=== PATIENT | female | born 1985 | race Caucasian/White ===

== ENCOUNTER 2020-04-07 14:16 | Outpatient (REF) | payer MEDICAID, SELFPAY | END 2020-04-07 14:17 | disposition home or self-care (01) | LOC: HO.LAB 14:16 | PROVIDERS: Visit Provider Internal Medicine | DX: Z20.828 Contact with and (suspected) exposure to other viral communicable diseases (principal) | CPT/HCPCS: 87635 ==

== ENCOUNTER → 2020-04-14 14:42 | Outpatient (BNVA) | payer OTHER, SELFPAY | PROVIDERS: Visit Provider Advanced Practice Midwife | DX: L03.317 Cellulitis of buttock (principal); L02.31 Cutaneous abscess of buttock; R39.15 Urgency of urination; R10.2 Pelvic and perineal pain; Z20.2 Contact with and (suspected) exposure to infections with a predominantly sexual mode of transmission; Z86.19 Personal history of other infectious and parasitic diseases | CPT/HCPCS: 99214 ==

== ENCOUNTER 2020-04-14 17:37 | Outpatient (REF) | payer OTHER, SELFPAY ==
[2020-04-15 02:51] LABS: CT PCR NOT DETECTED (Not Detect.); NG PCR NOT DETECTED (Not Detect.)
[2020-04-15 09:09] LABS: BV Int Neg Control Negative (Negative); BV Int Pos Control Positive (Positive)
== END 2020-04-14 17:38 | disposition home or self-care (01) ==
LOC: HO.LNP 17:37
PROVIDERS: Visit Provider Advanced Practice Midwife
DX: Z11.3 Encounter for screening for infections with a predominantly sexual mode of transmission (principal); Z20.2 Contact with and (suspected) exposure to infections with a predominantly sexual mode of transmission; R10.2 Pelvic and perineal pain
CPT/HCPCS: 87086; 87480; 87491; 87510; 87591; 87660

== ENCOUNTER → 2020-04-30 11:58 | Outpatient (BNVA) | payer OTHER, SELFPAY | PROVIDERS: PCP Physician Assistant Medical; Visit Provider Advanced Practice Midwife | DX: N76.0 Acute vaginitis (principal); B96.89 Other specified bacterial agents as the cause of diseases classified elsewhere; Z20.2 Contact with and (suspected) exposure to infections with a predominantly sexual mode of transmission | CPT/HCPCS: 99212 ==

== ENCOUNTER → 2020-05-19 13:34 | Outpatient (BNVA) | payer OTHER, SELFPAY | PROVIDERS: Visit Provider Physician Assistant | DX: Z76.89 Persons encountering health services in other specified circumstances (principal) ==

== ENCOUNTER → 2020-05-20 07:56 | Outpatient (BNVA) | payer OTHER, SELFPAY | PROVIDERS: Visit Provider Surgery | DX: Z76.89 Persons encountering health services in other specified circumstances (principal) ==

== ENCOUNTER → 2020-06-11 08:10 | Outpatient (BNVA) | payer OTHER, SELFPAY | PROVIDERS: PCP Physician Assistant Medical; Referring Provider Physician Assistant Medical; Visit Provider Surgery | DX: Z76.89 Persons encountering health services in other specified circumstances (principal) ==

== ENCOUNTER → 2020-06-18 08:43 | Outpatient (BNVA) | payer OTHER, SELFPAY | PROVIDERS: PCP Physician Assistant Medical; Referring Provider Physician Assistant Medical; Visit Provider Dietitian, Registered | DX: Z76.89 Persons encountering health services in other specified circumstances (principal) ==

== ENCOUNTER → 2020-06-21 08:09 | Outpatient (BNVA) | payer OTHER, SELFPAY | PROVIDERS: PCP Physician Assistant Medical; Visit Provider Dietitian, Registered | DX: Z76.89 Persons encountering health services in other specified circumstances (principal) ==

== ENCOUNTER → 2020-07-22 08:01 | Outpatient (BNVA) | payer OTHER, SELFPAY | PROVIDERS: PCP Physician Assistant Medical; Visit Provider Dietitian, Registered ==

== ENCOUNTER 2020-08-13 16:49 | Outpatient (REF) | payer OTHER, SELFPAY | END 2020-08-13 16:50 | disposition home or self-care (01) | LOC: HO.LAB 16:49 | PROVIDERS: Visit Provider Internal Medicine | DX: Z20.822 Contact with and (suspected) exposure to COVID-19 (principal) | CPT/HCPCS: 36415; C9803; U0003; U0005 ==

== ENCOUNTER 2020-10-20 14:12 | Outpatient (REF) | payer OTHER, SELFPAY | END 2020-10-20 14:13 | disposition home or self-care (01) | LOC: HO.LAB 14:12 | PROVIDERS: Visit Provider Internal Medicine | DX: Z20.822 Contact with and (suspected) exposure to COVID-19 (principal) | CPT/HCPCS: C9803; U0003; U0005 ==

== ENCOUNTER 2021-06-03 11:34 | Outpatient (REF) | payer OTHER, SELFPAY ==
[2021-06-04 11:19] LABS: BV Int Neg Control Negative (Negative); BV Int Pos Control Positive (Positive)
[2021-06-04 16:57] LABS: CT PCR NOT DETECTED (Not Detect.); NG PCR DETECTED (Not Detect.)
== END 2021-06-03 11:35 | disposition home or self-care (01) ==
LOC: HO.LAB 11:34
PROVIDERS: Visit Provider Advanced Practice Midwife
DX: R10.2 Pelvic and perineal pain (principal); B37.3 Candidiasis of vulva and vagina; Z20.2 Contact with and (suspected) exposure to infections with a predominantly sexual mode of transmission
CPT/HCPCS: 87086; 87480; 87491; 87510; 87591; 87660; 99212

== ENCOUNTER → 2021-06-10 08:47 | Outpatient (BNVA) | payer OTHER, SELFPAY | PROVIDERS: Visit Provider Advanced Practice Midwife | DX: A54.9 Gonococcal infection, unspecified (principal) | CPT/HCPCS: 96372; J0696 ==

== ENCOUNTER 2022-02-17 15:15 | Outpatient (REF) | payer OTHER, SELFPAY ==
[2022-02-18 03:02] LABS: CT PCR NOT DETECTED (Not Detect.); NG PCR NOT DETECTED (Not Detect.)
[2022-02-18 09:46] LABS: BV Int Neg Control Negative (Negative); BV Int Pos Control Positive (Positive)
[2022-02-23 15:46] LABS: HPV mRNA E6/E7 rflx Not Detected (Not Detected)
== END 2022-02-17 15:16 | disposition home or self-care (01) ==
LOC: HO.LAB 15:15
PROVIDERS: Visit Provider Advanced Practice Midwife
DX: Z12.4 Encounter for screening for malignant neoplasm of cervix (principal); Z11.51 Encounter for screening for human papillomavirus (HPV); Z11.3 Encounter for screening for infections with a predominantly sexual mode of transmission; Z20.2 Contact with and (suspected) exposure to infections with a predominantly sexual mode of transmission
CPT/HCPCS: 87480; 87491; 87510; 87591; 87624; 87660; 88142

== ENCOUNTER 2022-05-16 14:01 | Outpatient (REF) | payer OTHER, SELFPAY ==
[2022-05-17 13:01] LABS: CT PCR NOT DETECTED (Not Detect.); NG PCR NOT DETECTED (Not Detect.)
[2022-05-17 13:57] LABS: BV Int Neg Control Negative (Negative); BV Int Pos Control Positive (Positive)
== END 2022-05-16 14:02 | disposition home or self-care (01) ==
LOC: HO.LNP 14:01
PROVIDERS: Visit Provider Advanced Practice Midwife
DX: R30.0 Dysuria (principal); B96.20 Unspecified Escherichia coli [E. coli] as the cause of diseases classified elsewhere; R39.15 Urgency of urination; R10.2 Pelvic and perineal pain; Z11.3 Encounter for screening for infections with a predominantly sexual mode of transmission; Z11.8 Encounter for screening for other infectious and parasitic diseases
CPT/HCPCS: 87086; 87088; 87186; 87480; 87491; 87510; 87591; 87660; 99212

== ENCOUNTER 2022-05-23 13:47 | Outpatient (REF) | payer OTHER, SELFPAY ==
[2022-05-24 12:16] LABS: BV Int Neg Control Negative (Negative); BV Int Pos Control Positive (Positive)
[2022-05-24 14:17] LABS: CT PCR NOT DETECTED (Not Detect.); NG PCR NOT DETECTED (Not Detect.)
== END 2022-05-23 13:48 | disposition home or self-care (01) ==
LOC: HO.LNP 13:47
PROVIDERS: Visit Provider Obstetrics & Gynecology
DX: Z32.02 Encounter for pregnancy test, result negative (principal); Z11.3 Encounter for screening for infections with a predominantly sexual mode of transmission; N83.299 Other ovarian cyst, unspecified side; N73.0 Acute parametritis and pelvic cellulitis
CPT/HCPCS: 81003; 81025; 87480; 87491; 87510; 87591; 87660; 96372; 99212; J0696

== ENCOUNTER 2022-05-24 13:40 | Outpatient (REF) | payer OTHER, SELFPAY ==
--- NOTE | ~2022-05-24 | US_ITS ---
EXAMINATION: US PELVIS CLINICAL INFORMATION: Ultrasound pelvis and endovaginal. COMPARISON: Pelvic and perineal pain. TECHNIQUE: Ultrasound of the pelvis is performed using both transabdominal and transvaginal transducers along with Doppler. Transvaginal imaging is performed due to inadequate visualization transabdominally. FINDINGS: Uterus: The uterus is anteverted, anteflexed and measures 10.5 cm in length, 4.3 mL in AP and 5.6 cm in transverse dimension. The double wall endometrial thickness is 1.6 cm. The uterus is smooth in contour and has normal myometrial echogenicity. No visible fibroid. There are small nabothian cysts seen in the cervix. There are prominent extrauterine vessels with the largest measuring 0.8 cm suspicious for mild pelvic congestion. Adnexa: Both ovaries are visualized. There is normal color flow to the adnexa. There is no ovarian torsion. There is no pelvic ascites or fluid collection. Right ovary measures 2.8 x 2.9 x 2.0 cm and volume 8.3 mL. No focal lesion seen previously it measured 2.2 x 1.4 x 2.0 cm Left ovary measures 2.4 x 1.8 x 1.3 cm and volume 2.9 mL. No focal lesion seen. Previously it measured 2.5 x 1.2 x 2.4 cm. US/US pelvic and transvaginal IMPRESSION: Unremarkable uterus. Multiple simple nabothian cysts in cervix. The ovaries unremarkable. Suspect bilateral pelvic venous congestion.
== END 2022-05-24 13:41 | disposition home or self-care (01) ==
LOC: HO.US 13:40
PROVIDERS: Visit Provider Advanced Practice Midwife
DX: R10.2 Pelvic and perineal pain (principal)
CPT/HCPCS: 76830; 76856

== ENCOUNTER → 2022-05-31 13:44 | Outpatient (BNVA) | payer OTHER, SELFPAY | PROVIDERS: Visit Provider Obstetrics & Gynecology | DX: N73.0 Acute parametritis and pelvic cellulitis (principal); N83.299 Other ovarian cyst, unspecified side; N94.89 Other specified conditions associated with female genital organs and menstrual cycle | CPT/HCPCS: 99212 ==

== ENCOUNTER 2022-05-31 14:03 | Outpatient (REF) | payer OTHER, SELFPAY ==
[2022-05-31 14:32] LABS: Hematocrit 38.7 % (37.0-47.0); Hemoglobin 13.2 g/dl (12.0-16.0); Mean Corpuscular HGB Conc 34.1 g/dl (31.0-35.0); Mean Corpuscular Hemoglobin 28.9 pg (27.0-33.0); Mean Corpuscular Volume 84.9 fL (80.0-98.0); Mean Platelet Volume 9.7 fL (9.4-12.3); Platelet Count 269 X10*3/uL (160-400); Red Blood Count 4.56 X10*6/uL (4.20-5.50); White Blood Count 8.1 X10*3/uL (4.8-10.8)
[2022-05-31 15:05] LABS: Syphilis Screen Nonreactive (Nonreactive)
[2022-06-01 09:29] LABS: HBsAGNum1 0.31 S/CO (0.00-0.99); HIV AB/AG Nonreactive (Nonreactive); HIV Num 1 0.15 S/CO (0.00-0.99); Hepatitis B Surface Antigen Negative (Negative); ~HepC Num1 0.09 S/CO (0.00-0.79); ~Hepatitis C Antibody Nonreactive (Nonreactive)
== END 2022-05-31 14:04 | disposition home or self-care (01) ==
LOC: HO.LAB 14:03
PROVIDERS: Visit Provider Obstetrics & Gynecology
DX: Z11.4 Encounter for screening for human immunodeficiency virus [HIV] (principal); N73.0 Acute parametritis and pelvic cellulitis
CPT/HCPCS: 36415; 85027; 86780; 86803; 87340; 87389

== ENCOUNTER 2022-12-21 14:38 | Outpatient (REF) | payer MEDICAID, SELFPAY ==
[2022-12-22 13:57] LABS: BV Int Neg Control Negative (Negative); BV Int Pos Control Positive (Positive)
== END 2022-12-21 14:39 | disposition home or self-care (01) ==
LOC: HO.LNP 14:38
PROVIDERS: Visit Provider Obstetrics & Gynecology
DX: Z32.02 Encounter for pregnancy test, result negative (principal); N73.9 Female pelvic inflammatory disease, unspecified; Z20.2 Contact with and (suspected) exposure to infections with a predominantly sexual mode of transmission
CPT/HCPCS: 81025; 87480; 87510; 87660; 96372; 99212; J0696

== ENCOUNTER 2022-12-21 15:20 | Outpatient (REF) | payer MEDICAID, SELFPAY ==
--- NOTE | ~2022-12-21 | US_ITS ---
EXAMINATION: US PELVIS COMPLETE CLINICAL INFORMATION: Additional Notes/Special Instructions [facility]VAR[facility] CYST : COMPARISON: Pelvic ultrasound 05/24/2022 TECHNIQUE: Transabdominal and transvaginal imaging was performed. FINDINGS: The uterus is of normal size and echogenicity measuring 9.8 x 4.5 x 5.5 cm. The endometrium measures 1.5 cm. In thickness with an underlying polyp difficult to exclude Nabothian cysts in the cervix. Prominent bilateral adnexal vessels which could be seen in the setting of pelvic venous congestion syndrome if clinical history is appropriate. Both ovaries are of normal size and echogenicity. The right measures 2.6 x 1.9 x 1.6 cm for a volume of 4.1 mL. The left measures 2.8 x 1.4 x 2.5 cm for a volume of 5.1 mL. No Mass. There is small volume free fluid in the left adnexa. US/US pelvic and transvaginal IMPRESSION: 1. Prominent bilateral adnexal vessels which could be seen in the setting of pelvic venous congestion syndrome if clinical history is appropriate. 2. Endometrium measures 1.5 cm in thickness with an underlying polyp difficult to exclude. If any clinical concern consider repeat pelvic ultrasound the immediate postmenstrual phase or a saline sonohysterogram could be considered. 3. Unremarkable sonographic appearance of the ovaries. 4. Small volume free fluid in the left adnexa within physiologic limits of volume.
[2022-12-22 05:04] LABS: Syphilis Screen Nonreactive (Nonreactive)
[2022-12-22 05:15] LABS: HBsAGNum1 0.33 S/CO (0.00-0.99); HIV AB/AG Nonreactive (Nonreactive); HIV Num 1 0.07 S/CO (0.00-0.99); Hepatitis B Surface Antigen Negative (Negative); ~HepC Num1 0.11 S/CO (0.00-0.79); ~Hepatitis C Antibody Nonreactive (Nonreactive)
[2022-12-22 11:44] LABS: CT PCR NOT DETECTED (Not Detect.); NG PCR NOT DETECTED (Not Detect.)
== END 2022-12-21 15:21 | disposition home or self-care (01) ==
LOC: HO.US 15:20
PROVIDERS: Visit Provider Obstetrics & Gynecology
DX: Z11.4 Encounter for screening for human immunodeficiency virus [HIV] (principal); N83.299 Other ovarian cyst, unspecified side; N73.9 Female pelvic inflammatory disease, unspecified; Z20.2 Contact with and (suspected) exposure to infections with a predominantly sexual mode of transmission
CPT/HCPCS: 0353U; 76830; 76856; 86780; 86803; 87340; 87389

== ENCOUNTER → 2022-12-28 13:54 | Outpatient (BNVA) | payer MEDICAID, SELFPAY | PROVIDERS: Visit Provider Obstetrics & Gynecology | DX: N73.9 Female pelvic inflammatory disease, unspecified (principal); N94.89 Other specified conditions associated with female genital organs and menstrual cycle; R93.5 Abnormal findings on diagnostic imaging of other abdominal regions, including retroperitoneum | CPT/HCPCS: 99212 ==

== ENCOUNTER 2023-01-18 11:09 | Outpatient (REF) | payer MEDICAID, SELFPAY ==
[2023-01-18 17:54] LABS: CT PCR NOT DETECTED (Not Detect.); NG PCR NOT DETECTED (Not Detect.)
[2023-01-19 13:27] LABS: BV Int Neg Control Negative (Negative); BV Int Pos Control Positive (Positive)
== END 2023-01-18 11:10 | disposition home or self-care (01) ==
LOC: HO.LNP 11:09
PROVIDERS: Visit Provider Obstetrics & Gynecology
DX: N73.9 Female pelvic inflammatory disease, unspecified (principal); N89.8 Other specified noninflammatory disorders of vagina; B37.31 Acute candidiasis of vulva and vagina
CPT/HCPCS: 0353U; 87480; 87510; 87660; 99212

== ENCOUNTER 2023-01-18 11:09 | Outpatient (AMB) | payer MEDICAID, SELFPAY ==
[2023-01-18 11:15] VITALS: BP 122/70; BMI 32.1
--- NOTE | 2023-01-18 11:15 | A.OFFVIS_ITS ---
Intake Vital Signs 01/18/23 11:15 Height 5 ft 1 in Weight 170 lb BMI 32.1 BP 122/70 Blood Pressure Location Lt brachial Position Sitting Intake Visit Reasons: follow up PID Automatic Punch Press Operator Required: Yes Automatic Punch Press Operator Language: Cook Islander Allergies Sulfa (Sulfonamide Antibiotics) [SULFA(SULFONAMIDE ANTIBIOTICS)] Allergy (Unknown, Verified 01/18/23 11:16) RASH Lotrisone Allergy (Unknown, Uncoded 01/18/23 11:16) itching HPI HPI Comments History of Present Illness Details Presenting for PID follow-up, the patient took ceftriaxone IM and 14 day course of doxycycline and Flagyl, her pelvic pain has resolved completely. The patient is complaining of bilateral vulvar itching no associated foul odor PFSH Medical History Chlamydia contact, treated Hx of herpes simplex type 2 infection Hx of obesity Hx of type 2 diabetes mellitus Hypertension Insulin dependent diabetes mellitus Steatosis, liver Surgical History Hx of section Hx of tonsillectomy Hx of tubal ligation Obesity Family History Paternal Grandmother History of breast cancer Maternal Aunt History of breast cancer Paternal Aunt Uterine cancer Social History Alcohol intake: never Patient Tobacco Use Status: Never used Tobacco Gender identity: Female Female Reproductive History Menstrual Age of Menarche: 15 Review of Systems Const All systems reviewed & are unremarkable except as noted in HPI and below Physical Exam Vital Signs: Last Vital Signs BP 122/70 01/18/23 11:15 BMI result Body Mass Index 32.1 General: Yes no CVA tenderness External Female Exam: normal external appearance and normal appearance of the urethra Speculum Exam - Vagina: normal appearance of the vagina, normal palpation, no lesions and no masses Speculum Exam - Cervix: normal appearance of the cervix, normal palpation, no lesions, no masses and nontender Bimanual exam- vagina & uterus: normal bimanual exam, normal palpation, uterine size normal, normal palpation, uterine shape normal, No Cervical tenderness present and non-tender Bimanual Exam- Adnexa, other: normal adnexae Back/Spine/Pelvis Back: no CVA tenderness Assessment & Plan Assessment & Plan (1) Pelvic inflammatory disease: Comment: Resolved Code(s): N73.9 - Female pelvic inflammatory disease, unspecified Plan: Discussed with the patient the clinical improvement after antibiotics, PID has completely resolved, the patient was reassured. (2) Vulvar candidiasis: Code(s): B37.3 - Candidiasis of vulva and vagina Plan: GC/CT, Bacterial Vaginosis panel taken, Terazol 0.8% q.h.s. for 3 days was sent to the patient's pharmacy. The patient was instructed to call if symptoms don't improve in 48 hours. Orders: Orders Bacterial Vaginosis Panel Today N73.9 - Female pelvic inflammatory disease, unspecified, N89.8 - Other specified noninflammatory disorders of vagina CT NG by PCR Today N73.9 - Female pelvic inflammatory disease, unspecified, N89.8 - Other specified noninflammatory disorders of vagina Medications: New terconazole 0.8% 1 appful vaginal BEDTIME 3 days 20 grams 0RF Coding Level of Care Code Est Pt Level 3 (39825) Diagnoses Pelvic inflammatory disease N73.9 Vulvar candidiasis B37.3
== END 2023-01-18 11:36 | disposition home or self-care (01) ==
LOC: HO.HWS 11:09
PROVIDERS: Visit Provider Obstetrics & Gynecology
DX: N73.9 Female pelvic inflammatory disease, unspecified (principal)
CPT/HCPCS: 99213

== ENCOUNTER 2023-07-11 14:20 | Outpatient (AMB) | payer MEDICAID, SELFPAY ==
--- NOTE | 2023-07-11 14:48 | A.OFFVIS_ITS ---
Intake Vital Signs 07/11/23 14:49 Height 5 ft 1 in Weight 166 lb BMI 31.4 BP 118/70 Intake Visit Reasons: vag discharge Rental Car Deliverer Required: No Information Interpreted: clinical only Knife Setter Grinder Machine: Knife Setter Grinder Machine Present Allergies Sulfa (Sulfonamide Antibiotics) [SULFA(SULFONAMIDE ANTIBIOTICS)] Allergy (Unknown, Verified 07/11/23 14:49) RASH Lotrisone Allergy (Unknown, Uncoded 07/11/23 14:49) itching Medication List - Last Reconciled 07/11/23 by Andreina Cantu CNM insulin glargine (Lantus Solostar U-100 Insulin) 20 units subcut BID insulin lispro (Humalog U-100 Insulin) 1 sliding scale dose subcut USEASDIRECTD lisinopril 5 mg PO DAILY metronidazole 500 mg PO BID 7 days terconazole 0.8% 1 appful vaginal BEDTIME 3 days Is last menstrual period known: Yes Last menstrual period: 06/23/23 Do you need a note to return to daycare/school/sports/work: No HPI vag discharge HPI Details Patient is here because she is having vaginal discharge and vaginal itching and burning she thinks that is because her blood sugars have been elevated she has diabetes and she says her sugars are not well controlled. She has her next appointment with her primary care to To discuss this on the of this month. She is also worried about STDs she has acquired several STDs from her partner of many years including gonorrhea chlamydia and herpes and she was also treated for PID within the last year. She has been suffering with this vaginal itching and burning for about 2 weeks and she feels like there is a whitish coating on her vagina that is very bothersome she tried vaginal LUCÍA and adjust helped a little tiny bit. She says she is allergic to clotrimazole cream and also that she does not have any more medicine for herpes if she gets. An outbreak. She says she is not currently using the insulin.. [facility] Medical History (Updated 07/11/23 @ 15:27 by Andreina Cantu CNM) Steatosis, liver Hypertension Insulin dependent diabetes mellitus Chlamydia contact, treated Hx of type 2 diabetes mellitus Hx of obesity Hx of herpes simplex type 2 infection Surgical History Obesity Hx of tubal ligation Hx of tonsillectomy Hx of section Family History Paternal Grandmother History of breast cancer Maternal Aunt History of breast cancer Paternal Aunt Uterine cancer Social History Alcohol intake: never Patient Tobacco Use Status: Never used Tobacco Gender identity: Female Female Reproductive History Menstrual Age of Menarche: 15 Duration of menses: 3-5 days Date of last menstrual period: 06/23/23 control method: permanent sterilization Total pregnancies: 2 Full term: 2 Date of last pap smear: 02/21/22 History of abnormal pap smear: No (previous test,unknown ) Physical Exam Vital Signs: Last Vital Signs BP 118/70 07/11/23 14:49 BMI result Body Mass Index 31.4 External Female Exam: normal external appearance (vulva swollen and enflamed, surface appears dry, disch c/w yeast ), normal appearance of the urethra, erythema and external swelling Speculum Exam - Vagina: normal appearance of the vagina and normal vaginal discharge (c/w yeast) Speculum Exam - Cervix: normal appearance of the cervix Assessment & Plan Assessment & Plan (1) Vaginal itching: Code(s): N89.8 - Other specified noninflammatory disorders of vagina (2) Potential exposure to STD: Code(s): Z20.2 - Contact with and (suspected) exposure to infections with a predominantly sexual mode of transmission (3) Insulin dependent diabetes mellitus: Comment: 02/15/22- currently not using insulin 2' no visits w pcc in 1 yr (4) Vaginal burning: Code(s): N94.9 - Unspecified condition associated with female genital organs and menstrual cycle Plan ---I reviewed her symptoms in detail, and the contributing factors that lead to growth of yeast including warm dark spaces, lack of air to body cavities and mucosal membrane, and elevated blood sugars. I reviewed what she can do to make things better in particular using cotton underwear, non-use of panty liners, allowing air to her vulva at night if at all possible. Use of cotton underwear that is not tight fitting was encouraged. Plain cool water rinsing/showering to area may be comforting. I reviewed use of the medications including Diflucan and cream as directed. --I reviewed that the most important thing at her case is to get her diabetes and her blood sugar under good control, and I encouraged her to re-double her efforts in this regard, and to work with her primary care provider in adjusting any medication dosages if necessary, and following their recommendations for checking her blood sugar, following dietary recommendations, exercise goals, and trying to get things in control. I stressed that while a yeast infection is very very uncomfortable, and can be very problematic, it can be indicative of diabetes that is not under good control and could lead to further challenges for her health especially regarding blood vessels and kidney function and heart etc. So any efforts to get her diabetes under better control, may help more than just her yeast symptoms Discussed the importance of getting her diabetes under control and that a severe yeast infection is a symptom that she can see however other symptoms that she cannot see are more serious and could be affecting her kidneys and heart and v ision and many other or organ systems and so it really is important to get her diabetes under good control. I am sending a prescription for Diflucan pills for her to take 1 now and 1 in 3 days because her vulva is so dry and swollen and excoriated I do believe she will need the 2nd dose of this treatment. Additionally I am ordering miconazole cream for her to use topically. Also she did not and have any more refills of her valve cycle of air and she wanted those so I have ordered those additionally she expressed concern about her partner giving her STDs she does not have time to go for testing for blood work today but I asked her to discuss this with her primary care provider it if she wishes to get testing then and additionally discussed safer sex and making decisions that on her her health if she is concerned about fidelity and STDs. She may call for the results on Sunday if we have not called her for anything meanwhile I am treating her for the severe yeast and p.r.n. for the herpes in case she gets an outbreak I did also discuss that many times if somebody has a severe yeast infection it can provide the opportunity for of herpes outbreak so not to be surprised if she develops that the same time I saw no lesions suspicious of herpes today. Orders: Orders Bacterial Vaginosis Panel Today Z20.2 - Contact with and (suspected) exposure to infections with a predominantly sexual mode of transmission CT NG by PCR Today Z01.419 - Encounter for gynecological examination (general) (routine) without abnormal findings Medications: New miconazole nitrate 2% (Miconazole-7) 1 appful vaginal BEDTIME 45 grams 2RF 7 days fluconazole may repeat second dose 72 hrs after first dose if symptoms persist 150 mg PO Q3D 2 tabs 2RF 2 doses valacyclovir Take 1 pill every day for 3-5 days for an episodic outbreak of herpes 1,000 mg PO DAILY 30 tabs 0RF Coding Level of Care Code Est Pt Level 3 (13182) Diagnoses Vaginal itching N89.8 Potential exposure to STD Z20.2 Insulin dependent diabetes mellitus Vaginal burning N94.9
[2023-07-11 14:49] VITALS: BP 118/70; BMI 31.4
== END 2023-07-11 15:39 | disposition home or self-care (01) ==
LOC: HO.HWSM 14:20
PROVIDERS: Visit Provider Advanced Practice Midwife
DX: N89.8 Other specified noninflammatory disorders of vagina (principal); Z20.2 Contact with and (suspected) exposure to infections with a predominantly sexual mode of transmission; N94.9 Unspecified condition associated with female genital organs and menstrual cycle
CPT/HCPCS: 99213

== ENCOUNTER 2023-07-11 14:20 | Outpatient (REF) | payer MEDICAID, SELFPAY ==
[2023-07-12 03:16] LABS: CT PCR NOT DETECTED (Not Detect.); NG PCR NOT DETECTED (Not Detect.)
[2023-07-12 09:23] LABS: BV Int Neg Control Negative (Negative); BV Int Pos Control Positive (Positive)
== END 2023-07-11 14:21 | disposition home or self-care (01) ==
LOC: HO.LAB 14:20
PROVIDERS: Visit Provider Advanced Practice Midwife
DX: Z01.419 Encounter for gynecological examination (general) (routine) without abnormal findings (principal); N89.8 Other specified noninflammatory disorders of vagina; N94.9 Unspecified condition associated with female genital organs and menstrual cycle; Z79.4 Long term (current) use of insulin; Z20.2 Contact with and (suspected) exposure to infections with a predominantly sexual mode of transmission; Z79.899 Other long term (current) drug therapy
CPT/HCPCS: 0353U; 87480; 87510; 87660; 99212

== ENCOUNTER 2024-07-04 16:19 | Emergency (ER) | payer MEDICAID, SELFPAY ==
--- NOTE | ~2024-07-04 | XR_ITS ---
CLINICAL HISTORY: chest pain 2 view chest x-ray Comparison: None Findings: No consolidation or effusion. Normal size heart. No acute fracture. IMPRESSION: 1. No acute findings. This document has been electronically signed by: Chris Benitez MD on 07/04/2024 18:00:42
--- NOTE | 2024-07-04 16:24 | ECG_ITS ---
Test Reason : CP Blood Pressure : / mmHG Vent. Rate : 088 BPM Atrial Rate : 088 BPM P-R Int : 122 ms QRS Dur : 072 ms QT Int : 350 ms P-R-T Axes : 067 027 038 degrees QTc Int : 423 ms Normal sinus rhythm Normal ECG No previous ECGs available Referred By: Claudette Webb Electronically Signed By:KODAK GATES MD
--- NOTE | 2024-07-04 16:33 | ED.GENADULT ---
HPI - General Adult General Chief complaint: Chest Pain Stated complaint: Chest pain, L arm pain, facial pressure Time Seen by Provider: 07/04/24 22:20 Source: patient Mode of arrival: ambulatory Limitations: no limitations History of Present Illness ED Provider: HPI narrative: Patient has been having left shoulder pain for last 4 months after she fell was getting better since yesterday noticed pain in the left shoulder again radiating to the left chest no diaphoresis no shortness a breath prior to my evaluation patient has had 2 sets of cardiac enzymes which were negative EKG without any ischemic changes chest x-ray was negative patient does have pain on palpation Related Data Home Medications ?Medication ?Instructions ?Recorded ?Confirmed insulin glargine 100 unit/mL (3 20 unit subcut BID 04/14/20 07/11/23 mL) subcutaneous pen (Lantus Solostar U-100 Insulin) insulin lispro 100 unit/mL 1 sliding scale dose subcut 04/14/20 07/11/23 subcutaneous cartridge (Humalog USEASDIRECTD U-100 Insulin) lisinopril 5 mg tablet 5 mg PO DAILY 05/20/20 07/11/23 Previous Rx's ?Medication ?Instructions ?Recorded terconazole 0.8 % vaginal cream 1 appful vaginal BEDTIME 3 days 01/18/23 #20 grams metronidazole 500 mg tablet 500 mg PO BID 7 days #14 tabs 01/19/23 fluconazole 150 mg tablet 150 mg PO Q3D 2 doses #2 tabs 07/11/23 miconazole nitrate 2 % vaginal 1 appful vaginal BEDTIME 7 days 07/11/23 cream (Miconazole-7) #45 grams valacyclovir 1 gram tablet 1,000 mg PO DAILY #30 tabs 07/11/23 metronidazole 500 mg tablet 500 mg PO BID 7 days #14 tabs 07/12/23 naproxen 500 mg tablet 500 mg PO BID PRN pain #30 tabs 07/04/24 Allergies Allergy/AdvReac Type Severity Reaction Status Date / Time metronidazole Allergy Intermediate Rash Verified 07/04/24 16:36 Sulfa (Sulfonamide Allergy Unknown RASH Verified 07/04/24 16:36 Antibiotics) [SULFA(SULFONAMIDE ANTIBIOTICS)] Lotrisone Allergy Unknown itching Uncoded 07/11/23 14:49 Review of Systems Review of Systems: Yes all other systems are reviewed and are negative PMFSH Past Medical History Medical History Steatosis, liver Hypertension Insulin dependent diabetes mellitus Chlamydia contact, treated Hx of type 2 diabetes mellitus Hx of obesity Hx of herpes simplex type 2 infection Surgical History Obesity Hx of tubal ligation Hx of tonsillectomy Hx of section Family History Family History Paternal Grandmother History of breast cancer Maternal Aunt History of breast cancer Paternal Aunt Uterine cancer Social History Social History Alcohol intake: never Patient Tobacco Use Status: Never used Tobacco Advance Directives: No Advance Directives Information Provided: Yes Do you have a plan to hurt others: No Plan Gender identity: Female Physical Exam ED Vital Signs: Vital Signs - 24 hr 07/04/24 16:34 07/04/24 21:34 07/04/24 21:48 Temperature 98.4 F 97.4 F 99.3 F Pulse Rate 87 100 81 Respiratory Rate 20 17 14 Blood Pressure 167/95 H 146/86 H 150/80 H Pulse Oximetry 98 99 99 Oxygen Delivery Method Room Air Room Air Room Air BMI result Body Mass Index 32.3 Appearance: Alert. Oriented X3. No acute distress. Eyes: PERRLA, No Nystagmus ENT: Pharynx normal. Oral Mucosa moist Neck: Normal inspection. Neck supple. CVS: Normal heart rate and rhythm. Pulses normal. Left chest wall tenderness Respiratory: No respiratory distress. Equal air entry bilateral, no wheezing/rales/rhonchi Abdomen: Soft and nontender. Bowel sounds are present, no mass palpable, no CVA tenderness Skin: Skin warm and dry. Normal skin color. Normal skin turgor. Extremities: No lower extremity edema. No calf tenderness tenderness left rotator cuff which increases on abduction Neuro: Oriented X 3. No motor deficit. Course Course Course Narrative: This is a rapid medical exam performed by Clemente Webb NP: Additional HPI, ROS, PE not included below will be deferred to primary provider. Patient is a 39-year-old female with history of IDDM, HTN, liver steatosis presenting with complaint of left arm heaviness since yesterday, chest pain which started today. Describes chest pain as pricks. Feels weak, lightheaded. Plan: EKG, labs, CT head Medical Decision Making Medical Decision Making [facility] Narrative: Patient with musculoskeletal pain in the left shoulder with palpable tenderness likely the cause for pain 2 sets of cardiac enzymes negative EKG without any acute ischemic changes will discharge patient home on naproxen Differential Diagnosis Differential Diagnoses: The differential diagnosis associated with the presentation includes ACS/musculoskeletal Admission/Observation Consideration of admission/observation: Escalation of care including admission/observation considered Lab Data [facility] Lab Attestation statement: I reviewed the patient's lab results. 07/04/24 18:00 07/04/24 18:00 Labs: Lab Results 07/04/24 07/04/24 Range/Units 18:00 21:27 WBC 10.0 (4.8-10.8) X10*3/uL RBC 4.34 (4.20-5.50) X10*6/uL Hgb 12.8 (12.0-16.0) g/dl Hct 37.5 (37.0-47.0) % MCV 86.4 (80.0-98.0) fL MCH 29.5 (27.0-33.0) pg MCHC 34.1 (31.0-35.0) g/dl RDW 12.6 (11.0-16.0) % Plt Count 249 (160-400) X10*3/uL MPV 9.9 (9.4-12.3) fL Immature Gran % (Auto) 0.3 (0.0-0.4) % Neut % (Auto) 68.6 (45-73) % Lymph % (Auto) 20.9 (20-40) % [place] % (Auto) 9.1 (2-11) % Eos % (Auto) 0.7 (0-4) % Baso % (Auto) 0.4 (0-2) % Lymph # (Auto) 2.1 (1.2-4.9) X10*3/uL [place] # (Auto) 0.9 (0.1-1.2) X10*3/uL Eos # (Auto) 0.1 (0.0-0.4) X10*3/uL Baso # (Auto) 0.0 (0.0-0.2) X10*3/uL Abs Immat Gran (auto) 0.03 (0.00-0.03) X10*3/uL Absolute Neuts (auto) 6.8 (2.0-8.3) x10*3/uL Absolute Nucleated RBC 0.000 (0.0-0.012) X10*3/uL Nucleated RBC % (auto) 0.0 (0.0-0.2) /100WBC PT 11.2 (10.9-12.4) SEC INR 1.0 (0.9-1.1) Sodium 136 (135-145) mmol/L Potassium 4.4 (3.3-5.1) mmol/L Chloride 105 (96-108) mmol/L Carbon Dioxide 26 (22-29) mmol/L Anion Gap 9 L (12-20) BUN 11 (9-16) mg/dL Creatinine 0.80 (0.5-1.4) mg/dL Estim Creat Clear Calc 90.7 Estimated GFR > 60 Random Glucose 268 H (60-115) mg/dL Calcium 9.0 (8.4-10.2) mg/dL Magnesium 1.9 (1.6-2.6) mg/dL Total Bilirubin 0.3 (0.0-1.0) mg/dL AST 14 (5-31) U/L ALT 13 (0-31) U/L Alkaline Phosphatase 85 (39-117) U/L Troponin I High Sens < 2.7 < 2.7 (<3.5-17.0) ng/L Total Protein 7.5 (6.5-8.0) g/dL Albumin 4.0 (3.5-5.0) g/dL Beta HCG, Quant < 2 mIU/mL Independent Interpretation I performed an independent interpretation of an: EKG Interpretation: Normal sinus rhythm heart rate 88 beats per minute normal intervals normal axis no acute ST-T changes no acute ischemia Discharge Plan Discharge Clinical Impression: Costalchondritis, Tendinitis of left rotator cuff Patient Disposition: Home, Self-Care Instructions: Rotator Cuff Tendinitis (ED), Costochondritis (ED) Additional Instructions: Your pain is from the inflammation of the left rotator cuff tendons Take naproxen for pain Follow with your PCP for further management Prescriptions: New naproxen 500 mg tablet 500 mg PO BID PRN (Reason: pain) Qty: 30 0RF No Action metronidazole 500 mg tablet 500 mg PO BID 7 Days Qty: 14 0RF metronidazole 500 mg tablet 500 mg PO BID 7 Days Qty: 14 0RF Rx Instructions: Take with food, Avoid alcohol and vinegar products Lantus Solostar U-100 Insulin 100 unit/mL (3 mL) insulin pen 20 unit subcut BID Humalog U-100 Insulin 100 unit/mL cartridge 1 sliding scale dose subcut USEASDIRECTD lisinopril 5 mg tablet 5 mg PO DAILY miconazole nitrate [Miconazole-7] 2 % cream 1 appful vaginal BEDTIME 7 Days Qty: 45 2RF fluconazole 150 mg tablet 150 mg PO Q3D 0 Days Qty: 2 2RF Rx Instructions: may repeat second dose 72 hrs after first dose if symptoms persist valacyclovir 1 gram tablet 1,000 mg PO DAILY Qty: 30 0RF Rx Instructions: Take 1 pill every day for 3-5 days for an episodic outbreak of herpes terconazole 0.8 % cream 1 appful vaginal BEDTIME 3 Days Qty: 20 0RF Print Language: Swiss
[2024-07-04 16:34] VITALS: BP 167/95; PULSE 87; RESP 20; TEMP 36.9; O2SAT 98; BMI 32.3
[2024-07-04 18:06] LABS: MANUAL DIFF FLAG NO
[2024-07-04 18:07] LABS: Basophils Percent Auto 0.4 % (0-2); Eosinophils Absolute Auto 0.1 X10*3/uL (0.0-0.4); Eosinophils Percent Auto 0.7 % (0-4); Hematocrit 37.5 % (37.0-47.0); Hemoglobin 12.8 g/dl (12.0-16.0); Imm Gran Abs Auto 0.03 X10*3/uL (0.00-0.03); Imm Gran Pct Auto 0.3 % (0.0-0.4); Lymphocytes Absolute Auto 2.1 X10*3/uL (1.2-4.9); Lymphocytes Percent Auto 20.9 % (20-40); Mean Corpuscular HGB Conc 34.1 g/dl (31.0-35.0); Mean Corpuscular Hemoglobin 29.5 pg (27.0-33.0); Mean Corpuscular Volume 86.4 fL (80.0-98.0); Mean Platelet Volume 9.9 fL (9.4-12.3); Monocytes Absolute Auto 0.9 X10*3/uL (0.1-1.2); Monocytes Percent Auto 9.1 % (2-11); Neutrophils Absolute Auto 6.8 x10*3/uL (2.0-8.3); Neutrophils Percent Auto 68.6 % (45-73); Platelet Count 249 X10*3/uL (160-400); Red Blood Count 4.34 X10*6/uL (4.20-5.50); Red Cell Distribution Width 12.6 % (11.0-16.0)
[2024-07-04 18:18] LABS: Prothrombin Time 11.2 SEC (10.9-12.4)
[2024-07-04 18:28] LABS: Alanine Aminotransferase 13 U/L (0-31); Alkaline Phosphatase 85 U/L (39-117); Anion Gap 9 (12-20); Aspartate Amino Transferase 14 U/L (5-31); Bilirubin Total 0.3 mg/dL (0.0-1.0); Blood Urea Nitrogen 11 mg/dL (9-16); Carbon Dioxide 26 mmol/L (22-29); Chloride 105 mmol/L (96-108); Creatinine Clr Calc Pharmacy 90.7; Estimated Glomerular Filt Rate > 60; Glucose Random 268 mg/dL (60-115); HCG Quantitative < 2 mIU/mL; Magnesium 1.9 mg/dL (1.6-2.6); Potassium 4.4 mmol/L (3.3-5.1); Sodium 136 mmol/L (135-145); Total Protein 7.5 g/dL (6.5-8.0); Troponin-I High Sensitivity < 2.7 ng/L (<3.5-17.0)
[2024-07-04 21:34] VITALS: BP 146/86; PULSE 100; RESP 17; TEMP 36.3; O2SAT 99
[2024-07-04 21:48] VITALS: BP 150/80; PULSE 81; RESP 14; TEMP 37.4; O2SAT 99
--- NOTE | 2024-07-04 21:51 | MHC.EDTECH ---
patient placed on circle shear operator
[2024-07-04 21:58] LABS: Troponin-I High Sensitivity < 2.7 ng/L (<3.5-17.0)
[2024-07-04] MEDS: Ibuprofen 600 MG TABLET PO (23:23)
[2024-07-04 23:30] VITALS: BP 150/80; PULSE 81; RESP 14; TEMP 37.4; O2SAT 99
== END 2024-07-04 23:31 | disposition home or self-care (01) ==
PROVIDERS: Registered Nurse Emergency; Emergency Provider Internal Medicine
DX: M94.0 Chondrocostal junction syndrome [Tietze] (principal); M75.102 Unspecified rotator cuff tear or rupture of left shoulder, not specified as traumatic; E11.9 Type 2 diabetes mellitus without complications; I10 Essential (primary) hypertension; Z79.4 Long term (current) use of insulin; Z79.899 Other long term (current) drug therapy
CPT/HCPCS: 36415; 71046; 80053; 83735; 84484; 84702; 85025; 85610; 93005; 99283; 99285

== ENCOUNTER → 2024-07-04 16:24 | Outpatient (BNV) | payer MEDICAID, SELFPAY | PROVIDERS: Emergency Provider Internal Medicine; Visit Provider Internal Medicine Cardiovascular Disease | DX: R07.9 Chest pain, unspecified (principal) | CPT/HCPCS: 93010 ==

== ENCOUNTER → 2024-07-04 16:35 | Outpatient (BNV) | payer MEDICAID, SELFPAY | PROVIDERS: Visit Provider Specialist | DX: R07.9 Chest pain, unspecified (principal) | CPT/HCPCS: 71046 ==

== ENCOUNTER 2024-07-12 15:13 | Emergency (ER) | payer MEDICAID, SELFPAY ==
--- NOTE | ~2024-07-12 | XR_ITS ---
CLINICAL HISTORY: cellulitis foot 3 views right ankle Comparison: CR - XR FOOT RT MIN 3V - 07/12/24 15:41 EST Findings: No fractures, subluxations or dislocations. Ankle mortise intact. Normal plafond. No osteochondral lesions. Calcaneus and subtalar joint intact. No significant arthritic change. No plantar calcaneal spur. No soft tissue gas or soft tissue defects. Normal pre-Achilles fat pad. No radiopaque foreign body. Impression: 1. No soft tissue gas or soft tissue defects or bony destructive processes. This document has been electronically signed by: Ry Del Real MD on 07/12/2024 16:25:58
--- NOTE | ~2024-07-12 | XR_ITS ---
CLINICAL HISTORY: cellulitis dorsal foot 3 views right foot Comparison: CR - XR ANKLE RT MIN 3V - 07/12/24 15:43 EST Findings: No fractures, subluxations or dislocations. No periostitis or bony destruction. Joint intervals are preserved. No marginal erosions or overhanging osteophytes Calcaneus and subtalar joint intact. No significant arthritic change. No plantar calcaneal spur. No soft tissue gas or soft tissue defects. Normal pre-Achilles fat pad. No radiopaque foreign body. Impression: 1. No soft tissue gas or soft tissue defects. No bony destructive processes. This document has been electronically signed by: Ry Del Real MD on 07/12/2024 16:28:35
[2024-07-12 15:17] VITALS: BP 155/64; PULSE 88; RESP 19; TEMP 36.6; O2SAT 98; BMI 34.4
--- NOTE | 2024-07-12 15:21 | ED_ITS ---
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 Denies any trauma/injury. Reports swelling/pain primarily to the dorsal aspect of her right foot. She was evaluated at urgent care today and was advised to come to the ED for imaging to rule out osteomyelitis. She denies any fever/chills. Denies numbness/tingling/weakness of the right lower extremity. Admits that her DM is not well controlled. States that her work requires her to be standing for long periods of time. Related Data Home Medications ?Medication ?Instructions ?Recorded ?Confirmed insulin glargine 100 unit/mL (3 20 unit subcut BID 04/14/20 07/11/23 mL) subcutaneous pen (Lantus Solostar U-100 Insulin) insulin lispro 100 unit/mL 1 sliding scale dose subcut 04/14/20 07/11/23 subcutaneous cartridge (Humalog USEASDIRECTD U-100 Insulin) lisinopril 5 mg tablet 5 mg PO DAILY 05/20/20 07/11/23 Previous Rx's ?Medication ?Instructions ?Recorded terconazole 0.8 % vaginal cream 1 appful vaginal BEDTIME 3 days 01/18/23 #20 grams metronidazole 500 mg tablet 500 mg PO BID 7 days #14 tabs 01/19/23 fluconazole 150 mg tablet 150 mg PO Q3D 2 doses #2 tabs 07/11/23 miconazole nitrate 2 % vaginal 1 appful vaginal BEDTIME 7 days 07/11/23 cream (Miconazole-7) #45 grams valacyclovir 1 gram tablet 1,000 mg PO DAILY #30 tabs 07/11/23 metronidazole 500 mg tablet 500 mg PO BID 7 days #14 tabs 07/12/23 naproxen 500 mg tablet 500 mg PO BID PRN pain #30 tabs 07/04/24 cephalexin 500 mg capsule 500 mg PO TID 7 days #21 caps 07/12/24 doxycycline monohydrate 100 mg 100 mg PO BID 7 days #14 caps 07/12/24 capsule tramadol 50 mg tablet 50 mg PO Q8H PRN pain (scale score 07/12/24 4-6) #7 tabs Allergies Allergy/AdvReac Type Severity Reaction Status Date / Time metronidazole Allergy Intermediate Rash Verified 07/12/24 15:19 Sulfa (Sulfonamide Allergy Unknown RASH Verified 07/12/24 15:19 Antibiotics) [SULFA(SULFONAMIDE ANTIBIOTICS)] Lotrisone Allergy Unknown itching Uncoded 07/12/24 15:19 Review of Systems 2 Review of Systems: Constitutional: No fever, chills, fatigue, night sweats, weight changes ENT/Mouth: No ear pain, hearing loss, nasal congestion, sinus pain, rhinorrhea, sore throat Eyes: No eye pain, swelling, redness, vision changes, discharge Cardio: No chest pain, palpitations, [place], orthopnea, peripheral edema Pulm: No SOB, cough, sputum, wheezing, dyspnea, hemoptysis GI: No nausea, vomiting, hematemesis, abdominal pain, diarrhea, constipation, hematochezia, melena : No irregular bleeding, dysuria, frequency, urgency, hesitancy, hematuria, flank pain, urinary flow changes, urinary incontinence or retention MSK: No back pain, neck pain, joint pain, myalgias, +right foot pain Skin: No lesions, rashes Neuro: No weakness, numbness, paresthesias, LOC, dizziness, headache Psych: No anxiety/panic, depression, SI/HI, AH/VH All other systems reviewed and are negative. [facility] Past Medical History Attestation statement: The following information was validated with the patient. Source: old records reviewed and nursing notes reviewed Medical History Steatosis, liver Hypertension Insulin dependent diabetes mellitus Chlamydia contact, treated Hx of type 2 diabetes mellitus Hx of obesity Hx of herpes simplex type 2 infection Surgical History Obesity Hx of tubal ligation Hx of tonsillectomy Hx of section Family History Family History Paternal Grandmother History of breast cancer Maternal Aunt History of breast cancer Paternal Aunt Uterine cancer Social History Social History Alcohol intake: never Patient Tobacco Use Status: Never used Tobacco Advance Directives: No Advance Directives Information Provided: No Do you have a plan to hurt others: No Plan Patient : No Gender identity: Female Physical Exam ED Vital Signs: Vital Signs - 24 hr 07/12/24 15:17 07/12/24 16:55 07/12/24 19:17 Temperature 98 F 98.9 F Pulse Rate 88 89 89 Respiratory Rate 19 16 16 Blood Pressure 155/64 H 157/81 H 139/85 Pulse Oximetry 98 97 98 Oxygen Delivery Method Room Air Room Air Room Air BMI result Body Mass Index 34.4 hypertensive, vitals otherwise wnl General: Well appearing, in no acute distress. Skin: Warm, dry, intact. No rashes or lesions. Head: Normocephalic, atraumatic. EENT: Hearing is intact b/l. Conjunctiva clear. PERRLA. EOM intact. Moist mucous membranes.? Neck: Supple without LAD. Cardiac: Chest wall symmetric. RRR Lungs: Normal respiratory effort without accessory muscle use. CTA bilaterally Ext: +dorsal aspect of right foot with small 2cm x 2cm area of erythema and induration. no palpable fluctuance. no central pointing. no streaking. warm, ttp. no palpable deformity. no open wounds/ ulcers. ambulating with slight limping gait. 2+ pt/dp pulse intact. sensation intact. cap refill <2 seconds. Neuro: AOx3. Normal speech. Psych: Appropriate mood and affect. Responds appropriately to questions. Course Course Course Narrative: This is a Rapid Medical Examination (RME) performed by Machelle Conner PA-C in triage. Full HPI, ROS, assessment and treatment plan per primary provider in the Main ED. 39 yo female hx of HTN, IDDM here for eval of right foot pain x24 hours. seen at - concern for cellulitis to dorsal aspect of right foot. sent here to r/o osteomyelitis. no fever/chills. states her DM is not well controlled. no injury/ trauma. on her feet a lot for work. Plan: labs, xr Reevaluation(s) Reevaluation #1: CBC without leukocytosis or left shift. No anemia. H&H stable. Inflammatory markers elevated. Chemistry without acute electrolyte abnormality requiring intervention. Random glucose on arrival was 327. Repeat POC 210 which patient states is around her baseline. Likely to be somewhat elevated secondary to cellulitic skin infection. Liver function around baseline. X-ray of her right foot/ankle does not demonstrate findings concerning for osteomyelitis. No fracture. Her exam is consistent with a cellulitic skin infection. I do not have suspicion for gout/pseudogout or septic joint. Patient given a dose of Tylenol in the ED today. Will send her home with Keflex and doxy for coverage. Advised to continue Motrin/Tylenol at home for pain control. Tramadol sent to pharmacy for break through pain. Patient has remained stable throughout ED visit today. Discussed worrisome signs and symptoms and when to return to the ED. All questions answered at this time. Patient is agreeable with disposition and stable for discharge. Medications Administered Discontinued Medications Generic Name Dose Route Start Last Admin Trade Name Freq PRN Reason Stop Dose Admin Acetaminophen 975 mg 07/12/24 16:51 07/12/24 16:53 Acetaminophen 325 Mg Tablet PO 07/12/24 16:52 975 mg ONCE ONE Administration Medical Decision Making Medical Decision Making [facility] Narrative: 39-year-old Norwegian-speaking female with past medical history significant for hypertension and insulin dependent diabetes mellitus presents to the ED today for evaluation of right foot pain x 24 hours. Patient is hypertensive. Vitals are otherwise WNL. Afebrile. She is nontoxic-appearing and in no acute distress. Exam significant for dorsal aspect of right foot with small 2cm x 2cm area of erythema and induration. no palpable fluctuance. no central pointing. no streaking. warm, ttp. no palpable deformity. no open wounds/ ulcers. ambulating with slight limping gait. 2+ pt/dp pulse intact. sensation intact. cap refill <2 seconds. Differential diagnosis includes cellulitis, abscess, osteomyelitis, fracture. unlikely gout, pseuogout, septic joint, nv compromise, threat to limb, compartment syndrome. Plan for blood work, imaging, and pain control. Differential Diagnosis Differential Diagnoses: The differential diagnosis associated with the presentation includes As above Admission/Observation Consideration of admission/observation: Escalation of care including admission/observation considered Admission considered on presentation Lab Data [facility] Lab Attestation statement: I reviewed the patient's lab results. As above 07/12/24 15:32 07/12/24 15:32 Labs: Lab Results 07/12/24 07/12/24 Range/Units 15:32 19:00 WBC 7.6 (4.8-10.8) X10*3/uL RBC 4.01 L (4.20-5.50) X10*6/uL Hgb 11.9 L (12.0-16.0) g/dl Hct 34.5 L (37.0-47.0) % MCV 86.0 (80.0-98.0) fL MCH 29.7 (27.0-33.0) pg MCHC 34.5 (31.0-35.0) g/dl RDW 12.4 (11.0-16.0) % Plt Count 256 (160-400) X10*3/uL MPV 9.8 (9.4-12.3) fL Immature Gran % (Auto) 0.4 (0.0-0.4) % Neut % (Auto) 66.3 (45-73) % Lymph % (Auto) 24.1 (20-40) % [place] % (Auto) 7.5 (2-11) % Eos % (Auto) 1.3 (0-4) % Baso % (Auto) 0.4 (0-2) % Lymph # (Auto) 1.8 (1.2-4.9) X10*3/uL [place] # (Auto) 0.6 (0.1-1.2) X10*3/uL Eos # (Auto) 0.1 (0.0-0.4) X10*3/uL Baso # (Auto) 0.0 (0.0-0.2) X10*3/uL Abs Immat Gran (auto) 0.03 (0.00-0.03) X10*3/uL Absolute Neuts (auto) 5.0 (2.0-8.3) x10*3/uL Absolute Nucleated RBC 0.000 (0.0-0.012) X10*3/uL Nucleated RBC % (auto) 0.0 (0.0-0.2) /100WBC ESR 29 H (0-20) MM/HR Sodium 137 (135-145) mmol/L Potassium 4.3 (3.3-5.1) mmol/L Chloride 105 (96-108) mmol/L Carbon Dioxide 26 (22-29) mmol/L Anion Gap 10 L (12-20) BUN 12 (9-16) mg/dL Creatinine 0.71 (0.5-1.4) mg/dL Estim Creat Clear Calc 105.7 Estimated GFR > 60 POC Glucose 210 H (60-115) mg/dL Random Glucose 327 H (60-115) mg/dL Calcium 9.3 (8.4-10.2) mg/dL Total Bilirubin 0.2 (0.0-1.0) mg/dL AST 13 (5-31) U/L ALT 15 (0-31) U/L Alkaline Phosphatase 81 (39-117) U/L C-Reactive Protein 0.55 H (< or = 0.50) mg/dL Total Protein 7.5 (6.5-8.0) g/dL Albumin 3.7 (3.5-5.0) g/dL Independent Interpretation I performed an independent interpretation of an: Plain X-Ray Interpretation: X-ray right foot/ankle without fracture Radiology Impression Discussion of test interpretation with radiology: I have reviewed the radiologist's reading. Radiologist Impression: Ordering Physician: Sruthi Conner Date of Service: 07/12/24 Procedure(s): XR foot RT min 3V Accession Number(s): [id number] cc: Physician,Unknown ; Sruthi Conner~ CLINICAL HISTORY: cellulitis dorsal foot 3 views right foot Comparison: CR - XR ANKLE RT MIN 3V - 07/12/24 15:43 EST Findings: No fractures, subluxations or dislocations. No periostitis or bony destruction. Joint intervals are preserved. No marginal erosions or overhanging osteophytes Calcaneus and subtalar joint intact. No significant arthritic change. No plantar calcaneal spur. No soft tissue gas or soft tissue defects. Normal pre-Achilles fat pad. No radiopaque foreign body. Impression: 1. No soft tissue gas or soft tissue defects. No bony destructive processes. This document has been electronically signed by: Ry Del Real MD on 07/12/2024 16:28:35 Prescription Management I considered prescription management with: Pain Medication (Tramadol) and Antibiotic (Keflex, doxycycline) Chronic Conditions Patient?s care impacted by: Diabetes Social Determinants Patient?s care significantly limited by Social Determinants of Health including: Other Social Determinant of Health Critical Care Time Critical Care Time Critical Care Time: No Discharge Plan Discharge Clinical Impression: Cellulitis of foot Patient Disposition: Home, Self-Care Instructions: Cephalexin (By mouth), Doxycycline (By mouth), Cellulitis (ED) Additional Instructions: Your blood work today is reassuring. Your glucose was slightly elevated likely secondary to infection. The x-ray of your foot does not demonstrate involvement of the bone. Your exam is consistent with cellulitis (superficial infection of the skin). Treatment for this is with antibiotics (keflex and doxycycline). Both have been sent to your pharmacy. Take these to completion. Do not skip any doses. I encourage you to take Tylenol and Motrin at home for pain/discomfort. Tramadol has been sent to your pharmacy for breakthrough pain. Follow up with your primary care provider. Return with any new or worsening symptoms. In the case of an emergency call 911. Prescriptions: New cephalexin 500 mg capsule 500 mg PO TID 7 Days Qty: 21 0RF doxycycline monohydrate 100 mg capsule 100 mg PO BID 7 Days Qty: 14 0RF tramadol 50 mg tablet 50 mg PO Q8H PRN (Reason: pain (scale score 4-6)) Qty: 7 0RF No Action metronidazole 500 mg tablet 500 mg PO BID 7 Days Qty: 14 0RF metronidazole 500 mg tablet 500 mg PO BID 7 Days Qty: 14 0RF Rx Instructions: Take with food, Avoid alcohol and vinegar products naproxen 500 mg tablet 500 mg PO BID PRN (Reason: pain) Qty: 30 0RF Lantus Solostar U-100 Insulin 100 unit/mL (3 mL) insulin pen 20 unit subcut BID Humalog U-100 Insulin 100 unit/mL cartridge 1 sliding scale dose subcut USEASDIRECTD lisinopril 5 mg tablet 5 mg PO DAILY miconazole nitrate [Miconazole-7] 2 % cream 1 appful vaginal BEDTIME 7 Days Qty: 45 2RF fluconazole 150 mg tablet 150 mg PO Q3D 0 Days Qty: 2 2RF Rx Instructions: may repeat second dose 72 hrs after first dose if symptoms persist valacyclovir 1 gram tablet 1,000 mg PO DAILY Qty: 30 0RF Rx Instructions: Take 1 pill every day for 3-5 days for an episodic outbreak of herpes terconazole 0.8 % cream 1 appful vaginal BEDTIME 3 Days Qty: 20 0RF Interventions: ED Discharge Assessment Last Done: 07/12/24 19:17 Discharge Date/Time: 07/12/24 19:18 Print Language: Norwegian
[2024-07-12 15:49] LABS: MANUAL DIFF FLAG NO
[2024-07-12 15:54] LABS: Basophils Percent Auto 0.4 % (0-2); Eosinophils Absolute Auto 0.1 X10*3/uL (0.0-0.4); Eosinophils Percent Auto 1.3 % (0-4); Hematocrit 34.5 % (37.0-47.0); Hemoglobin 11.9 g/dl (12.0-16.0); Imm Gran Abs Auto 0.03 X10*3/uL (0.00-0.03); Imm Gran Pct Auto 0.4 % (0.0-0.4); Lymphocytes Absolute Auto 1.8 X10*3/uL (1.2-4.9); Lymphocytes Percent Auto 24.1 % (20-40); Mean Corpuscular HGB Conc 34.5 g/dl (31.0-35.0); Mean Corpuscular Hemoglobin 29.7 pg (27.0-33.0); Mean Platelet Volume 9.8 fL (9.4-12.3); Monocytes Absolute Auto 0.6 X10*3/uL (0.1-1.2); Monocytes Percent Auto 7.5 % (2-11); Neutrophils Percent Auto 66.3 % (45-73); Platelet Count 256 X10*3/uL (160-400); Red Blood Count 4.01 X10*6/uL (4.20-5.50); Red Cell Distribution Width 12.4 % (11.0-16.0); White Blood Count 7.6 X10*3/uL (4.8-10.8)
[2024-07-12 16:17] LABS: Alanine Aminotransferase 15 U/L (0-31); Albumin Level 3.7 g/dL (3.5-5.0); Anion Gap 10 (12-20); Aspartate Amino Transferase 13 U/L (5-31); Bilirubin Total 0.2 mg/dL (0.0-1.0); Blood Urea Nitrogen 12 mg/dL (9-16); C Reactive Protein 0.55 mg/dL (< or = 0.50); Calcium 9.3 mg/dL (8.4-10.2); Carbon Dioxide 26 mmol/L (22-29); Chloride 105 mmol/L (96-108); Creatinine Clr Calc Pharmacy 105.7; Estimated Glomerular Filt Rate > 60; Glucose Random 327 mg/dL (60-115); Potassium 4.3 mmol/L (3.3-5.1); Sodium 137 mmol/L (135-145); Total Protein 7.5 g/dL (6.5-8.0)
[2024-07-12 16:37] LABS: Alkaline Phosphatase 81 U/L (39-117)
[2024-07-12] MEDS: Acetaminophen 325 MG TABLET 975 MG PO (16:53)
[2024-07-12 16:55] VITALS: BP 157/81; PULSE 89; RESP 16; O2SAT 97
[2024-07-12 17:31] LABS: Erythrocyte Sedimentation Rate 29 MM/HR (0-20)
[2024-07-12 19:04] LABS: Glucose, Whole Blood 210 mg/dL (60-115)
[2024-07-12 19:17] VITALS: BP 139/85; PULSE 89; RESP 16; TEMP 37.2; O2SAT 98
== END 2024-07-12 19:18 | disposition home or self-care (01) ==
PROVIDERS: Physician Assistant Medical; Emergency Provider Emergency Medicine
DX: L03.115 Cellulitis of right lower limb (principal); M79.671 Pain in right foot; I10 Essential (primary) hypertension; E11.9 Type 2 diabetes mellitus without complications; Z79.4 Long term (current) use of insulin
CPT/HCPCS: 36415; 73610; 73630; 80053; 82947; 85025; 85652; 86140; 99283; 99284

== ENCOUNTER → 2024-07-12 15:19 | Outpatient (BNV) | payer MEDICAID, SELFPAY | PROVIDERS: Visit Provider Radiology Diagnostic Radiology | DX: L03.115 Cellulitis of right lower limb (principal) | CPT/HCPCS: 73610; 73630 ==

== ENCOUNTER 2025-03-18 08:25 | Outpatient (AMB) | payer MEDICAID, SELFPAY ==
--- NOTE | 2025-03-18 11:05 | A.OFFVIS_ITS ---
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 Required: Yes Thermoforming Machine Operator Services: Thermoforming Machine Operator Present Information Interpreted: clinical only Allergies metronidazole Allergy (Intermediate, Verified 03/18/25 11:07) Rash Sulfa (Sulfonamide Antibiotics) (SULFA(SULFONAMIDE ANTIBIOTICS)) Allergy (Unknown, Verified 03/18/25 11:07) RASH Lotrisone Allergy (Unknown, Uncoded 03/18/25 11:07) itching Medication List - Last Reconciled 03/18/25 by Emile John MD insulin glargine (Lantus Solostar U-100 Insulin) 20 units subcut BID insulin lispro (Humalog U-100 Insulin) 1 sliding scale dose subcut USEASDIRECTD lisinopril 5 mg PO DAILY HPI HPI 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*: Details: Start time: 10.55am, End time: 11.40am ?I spent 40 minutes speaking with the patient on the phone plus an additional 5 minutes reviewing and updating records for a total of 45 minutes HPI Comments Details: Previous weight loss efforts: [facility] program (dropped out very quickly) Wakes up:7am, Sleeps: 11pm Breakfast: 8.30am (2 eggs and hot dogs) Lunch: 2pm(rice, beans, meat) Dinner: 7pm (as lunch) Snacks: 10am (snack), 3-4pm (fruits, cheese and crackers) Exercise: none Beverages: Coffee: none, Tea: none, Soda: none, Juice: 3/wk, ETOH: none PFSH Medical History Steatosis, liver Hypertension Insulin dependent diabetes mellitus Chlamydia contact, treated Hx of type 2 diabetes mellitus Hx of obesity Hx of herpes simplex type 2 infection Surgical History Obesity Hx of tubal ligation Hx of tonsillectomy Hx of section Family History Paternal Grandmother History of breast cancer Maternal Aunt History of breast cancer Paternal Aunt Uterine cancer Social History Alcohol intake: never Patient Tobacco Use Status: Never used Tobacco Gender identity: Female Female Reproductive History Menstrual Age of Menarche: 15 Telehealth Telehealth Telehealth Platform: Telephone Location of provider rendering services: practice address Location of patient: address on file Patient Identification confirmed using: Name, : Yes Telehealth method: voice only Patient verbally consented to treatment: Yes Patient verbally consented to billing insurance company: Yes Patient informed of any privacy concerns related to visit: Yes Minutes spent on Phone/Video with Pt.: 45 Assessment & Plan Assessment & Plan (1) Obesity: Code(s): E66.9 - Obesity, unspecified Category: Surgical Qualifiers: Obesity type: due to excess calories Obesity classification: adult class 1 (BMI 30 - 34.9) Serious obesity comorbidity presence: with serious comorbidity Body mass index: BMI 33.0-33.9 Qualified Code(s): E66.811 - Obesity, class 1; E66.09 - Other obesity due to excess calories; Z68.33 - Body mass index [BMI] 33.0-33.9, adult Plan: 1. As we discussed, based on your present BMI you are approximately 50lbs overweight. In my opinion, for any weight loss strategy to be successful should have a high probability to help you lose at least 40lbs out of 50lbs of the extra weight you carry. We discussed in detail the available therapeutic options: 1) our lifestyle intervention program that has an average weight loss of 10% in 3 months.?Some patients continue it for longer and have lost over 50lbs but this is not common. Our lifestyle program can be provided by me or by using our s [employer] penny, the [employer] penny. I will provide you with a link to use the penny if you choose to do so. We use protein shakes and protein bars to replace some of the meals of the day and cover your appetite better. We will decide together the exact combination. 2) Weight loss medications: these can be used in conjunction with our lifestyle program or you may choose to use them without following a lifestyle program from my program but your own. As we discussed, because of her diabetes I can prescribe Mounjaro. 3) We also discussed about the lap sleeve gastrectomy. In my opinion this is the best option to solve your problem based on your situation and should be used in conjunction with the two previous options. A good strategy to make this decision to proceed with surgery, is to set some goals with the lifestyle intervention and medication options: If you don't lose at least 10lbs the first 6 weeks after starting the program or at least 10% in 3 months. ?I emphasized the importance of close follow-up, adherence to instructions and good communication. The surgery does not replace the need to change your lifestlyle which is the cause of the obesity problem. The surgery provides the motivation to try again to change your lifestyle, it reduces the appetite and make the transition to a better lifestyle easier and doubles the amount of weight you would lose compared to doing the lifestyle change without the surgery. You will need to be on a liquid diet with protein shakes for 2 weeks before surgery to maximize weight loss and boost your nutritional status to recover better from surgery and also for the first two weeks after surgery to let the stomach heal before we introduce other foods. After the first 2 weeks we will introduce protein bars and soft foods like scrambled eggs, cottage cheese and yogurt and after the 6th week will introduce meat, fish and cooked vegetables in small amounts. Over time you should be able to eat everything in small amounts. Side effects like nausea, vomiting, heartburn or abdominal pain are not common in the practice unless you are not following in the practice. This operation requires lifetime commitment to following in our practice and co mmunication with me. You will much less weight and experience side effects if you don?t communicate or not following in the practice. Complications are rare and in our practice is about 1/10 of the national average. 4. The patient wants to prescribe the Mounjaro. Start the Mounjaro when you get your body composition scale once a week. Use a calorie-counting penny to track your daily calories to create a calorie deficit with a target of consuming 1000- 1200 calories per day. We discussed the potential side effects of Moujaro such as nausea, vomiting, abdominal pain, diarrhea and constipation and you will need to contact me if any of these symptoms occur or for any other new symptom you may experience 5. Please buy a body composition scale and start sharing measurements with me 6. Emphasized the importance of checking his blood glucose levels frequently and daily and to report to me any blood glucose below 100, so I can adjust his insulin and prevent hypoglycemic episodes Medications: New tirzepatide (Mounjaro) for 4 weeks 2.5 mg (0.5 mL) subcut QWEEK 2 mL 0RF
[2025-03-18 11:06] VITALS: BMI 33.3
== END 2025-03-18 11:40 | disposition home or self-care (01) ==
LOC: HO.HBS 08:25
PROVIDERS: Visit Provider Surgery
DX: E66.811 Obesity, class 1 (principal); E66.09 Other obesity due to excess calories; Z68.33 Body mass index [BMI] 33.0-33.9, adult
CPT/HCPCS: 99204